=== PATIENT | male | born 1980 | race Caucasian/White ===

== ENCOUNTER 2018-09-22 23:48 | Emergency (ER) | payer SELFPAY ==
[~2018-09-22] VITALS: Ht 165.1 cm; Wt 72.6 kg
[2018-09-22 23:50] VITALS: BP 131/106
--- NOTE | 2018-09-23 00:10 | PHYS DOC ---
Adult General Chief Complaint Chief Complaint: ALCOHOL INTOXICATION HPI HPI Patient is a 38 year old male with history of alcoholism and drug use, who presents today stating he wants IV fluids for dehydration because he has been drinking alcohol "against God's will". Patient denies any drug use. He is using foul language and uncooperative at times. He states he does not need any help with alcoholism all he wants is IV fluids. [place] and [place] get help when he gets back home. He continues to use foul language. Sometimes hard to redirect. Denies any abdominal pain. Denies any chest pain or shortness of breath. Appears very drunk. Review of Systems Review of Systems Constitutional: Denies fever or chills [] Eyes: Denies change in visual acuity, redness, or eye pain [] HENT: Denies nasal congestion or sore throat [] Respiratory: Denies cough or shortness of breath [] Cardiovascular: No additional information not addressed in HPI [] GI: Denies abdominal pain, nausea, vomiting, bloody stools or diarrhea [] : Denies dysuria or hematuria [] Musculoskeletal: Denies back pain or joint pain [] Integument: Denies rash or skin lesions [] Neurologic: Denies headache, focal weakness or sensory changes [] Pysch: Alcohol intoxication All other systems were reviewed and found to be within normal limits, except as documented in this note. Current Medications Current Medications Current Medications Medications (Trade) Dose Ordered Sig/[facility] Start Time Stop Time Status Last Admin Dose Admin Multivitamins 10 ml/Thiamine HCl 100 mg/Folic Acid 1 mg/Sodium Chloride 1,011.2 ml @ 1,000.088 mls/hr 1X ONCE 09/23/18 00:15 09/23/18 01:15 Allergies Allergies Allergies Coded Allergies Type Severity Reaction Last Updated Verified chlorpromazine Allergy Unknown 09/23/18 Yes haloperidol Allergy Unknown 09/23/18 Yes ketorolac Allergy Unknown 09/23/18 Yes shellfish derived Allergy Unknown 09/23/18 Yes Physical Exam Physical Exam Constitutional: Well developed, well nourished, no acute distress, non-toxic appearance. [] HENT: Normocephalic, atraumatic, bilateral external ears normal, oropharynx moist, no oral exudates, nose normal. [] Eyes: PERRLA, EOMI, conjunctiva normal, no discharge. [] Neck: Normal range of motion, no tenderness, supple, no stridor. [] Cardiovascular:Heart rate regular rhythm, no murmur [] Lungs & Thorax: Bilateral breath sounds clear to auscultation [] Abdomen: Bowel sounds normal, soft, no tenderness, no masses, no pulsatile masses. [] Skin: Warm, dry, no erythema, no rash. [] Back: No tenderness, no CVA tenderness. [] Extremities: No tenderness, no cyanosis, no clubbing, ROM intact, no edema. [] Neurologic: Alert and oriented X 3, normal motor function, normal sensory function, no focal deficits noted. [] Psychologic: Appears intoxicated, using foul language, EKG EKG [] Radiology/Procedures Radiology/Procedures [] Course & Med Decision Making Course & Med Decision Making Pertinent Labs and Imaging studies reviewed. (See chart for details) This is a 38-year-old male patient presenting to the ED today via EMS for alcohol intoxication. Patient is requesting IV fluids and refusing help for alcohol abuse. 00:11 patient requested to leave i went to evaluate him. He is alert and orientedX3 he is ambulating with no difficulties, he continues to use foul language to the nurses and everybody around him, he was escorted out of the ED by security. He is not a danger to himself or others. Dragon Disclaimer Dragon Disclaimer This electronic medical record was generated, in whole or in part, using a voice recognition dictation system. Departure Departure Impression: Primary Impression: Alcohol intoxication Disposition: 07 AGAINST MEDICAL ADVICE Condition: STABLE Problem Qualifiers Primary Impression: Alcohol intoxication Complication of substance-induced condition: with unspecified complication Qualified Codes: F10.929 - Alcohol use, unspecified with intoxication, unspecified M[employer]UNGASARAH [employer] Sep 23, 2018 00:10
[2018-09-23] MEDS ORDERED: MULTIVIT INFUSN,ADULT 4,VIT K 10 ML, THIAMINE INJ 100 MG, FOLIC ACID INJ 1 MG in IV NOR... IV ONE (00:15)
== END 2018-09-23 00:11 | disposition left against medical advice (07) ==
LOC: ER 23:48
DX: F10.229 Alcohol dependence with intoxication, unspecified (principal); Z88.8 Allergy status to other drugs, medicaments and biological substances; Z91.013 Allergy to seafood; Y90.9 Presence of alcohol in blood, level not specified
CPT/HCPCS: 99283